=== PATIENT | female | born 1940 | race Caucasian/White ===

== ENCOUNTER 2018-05-19 19:35 | Inpatient (IN) ==
[2018-05-19] MEDS ORDERED: fentaNYL 100 MCG/2 ML VIAL IV STA (21:02)
[2018-05-19] MEDS ORDERED: ONDANSETRON 4 MG/2 ML VIAL IV STA (21:03)
[2018-05-19] MEDS ORDERED: ONDANSETRON 4 MG/2 ML VIAL IV PRN (21:33)
[2018-05-19] MEDS: DEXTROSE 5% LACTATED RINGERS 1,000 ML IV SCH (23:26)
[2018-05-20] MEDS: MORPHINE 4 MG/1 ML VIAL IV PRN ×10 (00:08→22:02)
[2018-05-20] MEDS ORDERED: NITROGLYCERIN SL 0.4 MG TABLET SL PRN (02:58)
[2018-05-20] MEDS: DEXTROSE 5% LACTATED RINGERS 1,000 ML IV SCH ×2 (07:26→16:11)
[2018-05-20] MEDS: PANTOPRAZOLE 40 MG VIAL IV SCH (08:50)
[2018-05-20 10:05] LABS: Basophils % 0.2 % (0.0-0.8); Eosinophils % 0.2 % (0.00-10.9); Hematocrit 39.1 VOL% (35.7-47.0); Hemoglobin 12.2 GM/DL (12.0-16.0); Immature Granulocytes % 0.3 %; Immature Granulocytes Absolute 0.03 #; Lymphocytes # 3.1 10*3/uL (1.4-4.0); Mean Corpuscular HGB Conc 31.2 GM/DL (32-36); Mean Corpuscular Hemoglobin 31 PG (27-34); Mean Corpuscular Volume 100.5 FL (87-102); Mean Platelet Volume 10.3 FL (9.6-12.0); Monocytes # 0.8 10*3/uL (0.11-0.8); Monocytes % 7.1 % (1.7-12.7); Neutrophils # 6.8 10*3/uL (1.4-7.4); Neutrophils % 63.2 % (38.7-73.9); Platelet Count 135 T/CUMM (130-400); Red Blood Count 3.89 MC/CUMM (3.8-5.5); Red Cell Distribution Width 14.4 % (9.3-17.3); White Blood Count 10.7 T/CUMM (4-12)
[2018-05-20 10:21] LABS: Calcium 8.6 MG/DL (8.5-10.1); Osmolality,Calculated 285.3 MOS/KG (273-304); Potassium 4.4 MMOL/L (3.5-5.1)
[2018-05-20] MEDS ORDERED: MAGNESIUM SULF RIDER 4 GM in PREMIX 1 EACH IV PRN (11:14)
[2018-05-20] MEDS ORDERED: DEXTROSE 50% 25 GM/50 ML SYRINGE IV PRN (11:15)
[2018-05-20] MEDS ORDERED: GLUCAGON 1 MG VIAL IM PRN (11:15)
[2018-05-20] MEDS: MAGNESIUM SULF RIDER 2 GM in PREMIX 1 EACH IV PRN (13:22)
[2018-05-20] MEDS: INSULIN REGULAR 100 UNIT/ML SUBCUT SCH ×2 (13:31→18:37)
[2018-05-20 18:01] LABS: Apearance,Urine CLEAR (Clear); Bilirubin,Urine Negative (Negative); Blood, Urine Large mg/dL (Negative); Glucose,Urine (UA) Negative (Negative); Hyaline Casts,Urine 1 /LPF (0-3); Ketones,Urine Negative (Negative); Mucus,Urine Occasional /LPF (Occasional); Nitrite,Urine Negative (Negative); Protein,Urine Negative; RBC,Urine 65 /HPF (0-4); Urine Color Amber (Yellow); Urine Specific Gravity 1.025 (1.001-1.035); WBC,Urine 10 /HPF (0-6)
[2018-05-21] MEDS: MORPHINE 4 MG/1 ML VIAL IV PRN ×8 (00:01→20:46)
[2018-05-21] MEDS: INSULIN REGULAR 100 UNIT/ML SUBCUT SCH ×5 (00:06→23:32)
[2018-05-21] MEDS: DEXTROSE 5% LACTATED RINGERS 1,000 ML IV SCH ×4 (00:07→22:13)
[2018-05-21 04:57] LABS: Basophils % 0.3 % (0.0-0.8); Eosinophils # 0.1 10*3/uL (0.0-0.87); Eosinophils % 1.1 % (0.00-10.9); Hematocrit 38.5 VOL% (35.7-47.0); Hemoglobin 11.6 GM/DL (12.0-16.0); Immature Granulocytes % 0.3 %; Immature Granulocytes Absolute 0.02 #; Lymphocytes # 2.6 10*3/uL (1.4-4.0); Lymphocytes % 34.9 % (21.3-54.2); Mean Corpuscular HGB Conc 30.1 GM/DL (32-36); Mean Corpuscular Hemoglobin 31 PG (27-34); Mean Corpuscular Volume 101.6 FL (87-102); Mean Platelet Volume 10.3 FL (9.6-12.0); Monocytes # 0.6 10*3/uL (0.11-0.8); Neutrophils # 4.1 10*3/uL (1.4-7.4); Neutrophils % 55.4 % (38.7-73.9); Platelet Count 112 T/CUMM (130-400); Red Blood Count 3.79 MC/CUMM (3.8-5.5); Red Cell Distribution Width 14.2 % (9.3-17.3); White Blood Count 7.4 T/CUMM (4-12)
[2018-05-21 05:23] LABS: Calcium 8.2 MG/DL (8.5-10.1); Osmolality,Calculated 279.4 MOS/KG (273-304); Potassium 4.2 MMOL/L (3.5-5.1)
[2018-05-21 05:34] LABS: Free T4 (Free Thyroxine) 1.04 NG/DL (0.76-1.46); Thyroid Stimulating Hormone 1.59 uIU/ml (0.358-3.74)
[2018-05-21] MEDS: PANTOPRAZOLE 40 MG VIAL IV SCH (08:34)
[2018-05-21] MEDS: cefTRIAXone 1,000 MG in SYRINGE 1 EACH IV SCH (10:34)
[2018-05-21] MEDS ORDERED: traMADol 50 MG TABLET PO PRN (11:28)
[2018-05-21] MEDS ORDERED: DIGOXIN 0.125 MG TABLET PO ONE (19:36)
[2018-05-21] MEDS ORDERED: TEMAZEPAM 15 MG CAPSULE PO SCH (21:00)
[2018-05-21] MEDS: oxyCODONE/ACETAMINOPHEN 5-325 MG TABLET PO PRN (23:27)
[2018-05-22] MEDS: DEXTROSE 5% LACTATED RINGERS 1,000 ML IV SCH ×3 (00:43→14:04)
[2018-05-22] MEDS: MORPHINE 4 MG/1 ML VIAL IV PRN ×2 (02:11→12:20)
[2018-05-22 05:56] LABS: Basophils % 0.2 % (0.0-0.8); Eosinophils % 0.7 % (0.00-10.9); Hematocrit 37.6 VOL% (35.7-47.0); Hemoglobin 11.2 GM/DL (12.0-16.0); Immature Granulocytes % 0.3 %; Immature Granulocytes Absolute 0.02 #; Lymphocytes # 1.6 10*3/uL (1.4-4.0); Lymphocytes % 27.1 % (21.3-54.2); Mean Corpuscular HGB Conc 29.8 GM/DL (32-36); Mean Corpuscular Hemoglobin 30 PG (27-34); Mean Corpuscular Volume 101.6 FL (87-102); Mean Platelet Volume 10.6 FL (9.6-12.0); Monocytes # 0.5 10*3/uL (0.11-0.8); Monocytes % 8.1 % (1.7-12.7); Neutrophils # 3.7 10*3/uL (1.4-7.4); Neutrophils % 63.6 % (38.7-73.9); Platelet Count 94 T/CUMM (130-400); Red Cell Distribution Width 14.1 % (9.3-17.3); White Blood Count 5.8 T/CUMM (4-12)
[2018-05-22 06:01] LABS: Calcium 8.6 MG/DL (8.5-10.1); Osmolality,Calculated 277.4 MOS/KG (273-304); Potassium 4.6 MMOL/L (3.5-5.1)
[2018-05-22 06:41] LABS: Eosinophils 1 % (0-10); Hypochromasia 1+; Lymphocytes 31 % (20-55); Segmented Neutrophils 63 % (50-85); Total Cells Counted 100
[2018-05-22 06:42] LABS: Macrocytosis Slight; Platelet Estimate Decreased
[2018-05-22] MEDS: INSULIN REGULAR 100 UNIT/ML SUBCUT SCH ×3 (07:13→19:37)
[2018-05-22] MEDS: oxyCODONE/ACETAMINOPHEN 5-325 MG TABLET PO PRN ×2 (07:15→14:09)
[2018-05-22] MEDS ORDERED: PARoxetine 10 MG TABLET PO SCH (09:00)
[2018-05-22] MEDS: PANTOPRAZOLE 40 MG VIAL IV SCH (09:12)
[2018-05-22] MEDS: cefTRIAXone 1,000 MG in SYRINGE 1 EACH IV SCH (09:16)
[2018-05-22] MEDS: MAGNESIUM SULF RIDER 2 GM in PREMIX 1 EACH IV PRN (09:22)
[2018-05-22 23:06] VITALS: BP 125/74
== END 2018-05-22 19:55 | disposition home or self-care (01) | DRG 389 ==
LOC: EDBD → EDUNIT# → N.ED 19:35 → N.EDINP 22:32 → N.3E 22:46
PROVIDERS: ADMIT Surgery; ATTEND Surgery